=== PATIENT | female | born 1965 | race Caucasian/White ===

== ENCOUNTER → 2016-11-04 | Outpatient (CLI) | payer BC ==
[~2016-11-04] MED LIST: DEXILANT30 MG PO; ESTRACE2 MG PO; MULTI-VITAMIN W1 TA1 PO; PHENERGAN25 MG PO; PRILOSEC20 MG PO; ZYRTEC PO
--- NOTE | ~2016-11-04 | US84 ---
[id number] [facility]. [facility] [address] [place], [place] [address] [id number] O MR#: [id number] Acc #: [id number] NAME: DIYA GUERRA : 1965 SEX: F STUDY DATE/TIME: 11/04/2016 14:29 UNIT: [facility] ROOM: STUDY DESCRIPTION: US LE Veins Complete Wei Stdy Attending Physician: Nick Suárez M.D. Referring Physician: Nick Suárez M.D. Ordering Physician: Nick Suárez M.D. Primary Care Physician: Nick Suárez M.D. MEDICAL IMAGING REPORT This report is preliminary unless electronic signature is present EXAM Bilateral lower extremity venous Doppler REASON FOR EXAM Bilateral lower extremity edema. FINDINGS The right common femoral vein, common femoral vein, popliteal vein, and tibial veins demonstrate patency and compressibility. There is phasic and spontaneous flow with respiration and augmentation. Proximal and distal greater saphenous vein is patent and compressible. Left common femoral vein, femoral vein, popliteal vein, tibial veins demonstrate patency and compressibility. There is phasic and spontaneous flow with respiration and augmentation. Proximal and distal greater saphenous vein is patent and compressible. IMPRESSION No evidence of either right or left lower extremity deep vein thrombosis. Dictated by... Jt Gomez M.D. THIS IS AN ELECTRONICALLY VERIFIED REPORT Jt Gomez M.D. at 11/12/2016 9:42 AM Nakia TD: 11/05/2016 02:51 JOB #: [id number] MEDICAL IMAGING REPORT Page 1 of 1 COPY
== END | disposition home or self-care (01) ==
LOC: CECH 12:36
DX: R60.9 Edema, unspecified (principal); I51.7 Cardiomegaly
CPT/HCPCS: 93306; 93970